=== PATIENT | female | born 1960 | race Caucasian/White ===

== ENCOUNTER 2016-05-05 20:50 | Emergency (ER) | payer OTHER ==
[~2016-05-05] VITALS: Ht 165.1 cm; Wt 52.9 kg
[~2016-05-05 20:50] MED LIST: BCTROWC NAE; CHLO4LIQ; FRS/40 PO
[2016-05-05 20:52] VITALS: TEMP 36.5; Ht 165.1 cm; Wt 52.9 kg
--- NOTE | 2016-05-05 21:31 | EMERGENCY ROOM VISIT NOTE ---
ED Visit Note First contact with patient: 20:57 The patient was seen and examined with Cherri Rogers PA-C. I agree with the history, physical and findings. Please see the note for disposition and details.
[2016-05-05] MEDS ORDERED: DOXY100T PO (21:37)
[2016-05-05] MEDS ORDERED: RIFA300C34 PO (21:37)
[2016-05-05 21:39] VITALS: BP 103/63; PULSE 70; O2SAT 96
[2016-05-05] MEDS ORDERED: CEPHALEXIN 500MG HOME PACK 1 EA BTL PO ONE (21:45)
[2016-05-05] MEDS ORDERED: SEPTRA DS HOME PACK 1 EA VIAL PO ONE (21:45)
[2016-05-05] MEDS ORDERED: SULF800T23 PO (21:51)
[2016-05-05] MEDS ORDERED: CEPH500C PO (21:51)
--- NOTE | 2016-05-05 21:53 | EMERGENCY ROOM VISIT NOTE ---
History First contact with patient: 20:57 Chief Complaint: SKIN PROBLEM Stated Complaint: POSSIBLE INFECTION ON RT SIDE OF FACE History of Present Illness The patient is a 56 year old female who presents to the Emergency Room with complaints of swelling to the right side of her face. The patient reports that she had a lesion removed from the right side of her face yesterday by Dr. Amezquita in [place]. The patient states that she has had the lesion for several years. She has been seen by the wound clinic and by infectious disease and states that at one time, a culture of the lesion grew out MRSA. She has been treated with multiple antibiotics. She states that the area has been very itchy and painful recently, so she chose to have it removed. She reports that when she woke up this morning, the area was itchy. Throughout the day, she has noticed swelling in the right side of the face surrounding the incision. She states it is both itchy and painful and rates her overall discomfort a 5/10. She is not currently taking any antibiotics or pain medication. She denies any fevers/chills. Review of Systems A complete 10-point Review of Systems was discussed with the patient, with pertinent positives and negatives listed in the History of Present Illness. All remaining Review of Systems questions can be considered negative unless otherwise specified. Past Medical/Surgical History Medical Problems: (1) Anemia (2) Anxiety State Nos (3) Chest pain (4) Depressive Disorder Nec (5) GI bleed (6) Hypotension Nos (7) Hypothyroidism Nos (8) Pericardial effusion (9) Renal insufficiency (10) Upper GI bleed Surgical Problems: (1) Hx of appendectomy (2) Hx of cholecystectomy Family History Heart disease Hypertension Social History Smoking Status: Never Smoker Drug Use: none Marital Status: Housing Status: lives with significant other Occupation Status: employed Current/Historical Medications Scheduled Cephalexin Monohydrate (Keflex), 500 MG PO QID Doxycycline Hyclate (Doxycycline Hyclate), 100 MG PO BID Levothyroxine Sodium (Levothyroxine Sodium), 50 MCG PO DAILY Mupirocin (Bactroban 2% Oint), 1 APPLN EXT BID Rifampin (Rifadin), 300 MG PO BID Sulfa/Trimethoprim (Bactrim Ds 800MG/160MG), 1 TAB PO BID Trazodone HCl (Trazodone HCl), 100 MG PO HS Venlafaxine Hcl (Effexor Extended Rel), 150 MG PO BID Scheduled PRN Furosemide (Furosemide), 20 MG PO DAILY PRN for Fluid Retention Allergies Coded Allergies: No Known Allergies (Unverified , 11/04/14) Physical Exam Vital Signs Date Time Temp Pulse Resp B/P Pulse Ox O2 Delivery O2 Flow Rate FiO2 05/05/16 21:39 70 16 103/63 96 Room Air 05/05/16 20:52 36.5 102 20 115/71 98 Room Air Physical Exam VITALS: Vitals are noted on the nurse's note and reviewed by myself. Vital signs stable. GENERAL: This is a 56-year-old female, in no acute distress, nondiaphoretic, well-developed well-nourished. SKIN: There is a surgical wound to the right temporal area with no drainage. There is moderate surrounding erythema without any fluctuance, erythema or warmth. HEENT: Normocephalic. PERRLA. EOMI. Nares patent. Mucous membranes moist. Neck is supple without nuchal rigidity. HEART: Regular rate and rhythm without murmurs gallops or rubs. LUNGS: Clear to auscultation bilaterally without wheezes, rales or rhonchi. NEURO: Patient was alert and oriented to person place and time. Medical Decision & Procedures Medications Administered Medications (Trade) Dose Ordered Sig/Lu Route Start Time Stop Time Status Last Admin Dose Admin Cephalexin Monohydrate (Keflex 500MG Home Pack) 1 homepack NOW ONCE PO 05/05/16 21:45 05/05/16 21:46 DC 05/05/16 21:40 1 HOMEPACK Trimethoprim/ Sulfamethoxazole (Sulfameth/ Trimeth Ds 800/ 160MG Home Pack) 1 homepack UD ONCE PO 05/05/16 21:45 05/05/16 21:46 DC 05/05/16 21:41 1 HOMEPACK Medical Decision Differential diagnosis includes abscess, cellulitis, allergic reaction, among others. The patient was evaluated as above. She does have a moderate amount of swelling. There is no erythema or warmth to suggest a cellulitis. However, given the patient's history of MRSA and the amount of swelling that she has, I do feel she should be covered on antibiotics for possible infection. The patient's previous visits to the wound clinic were reviewed. She has most recently been taking rifampin and doxycycline. She will be placed on Bactrim and Keflex. She was instructed to follow-up with her surgeon as soon as possible. She will return for worsening signs of infection. She was instructed to use Benadryl for the itching. She declined analgesics. The patient was independently evaluated by Dr. Aguilera, ED attending physician, who agreed with my assessment and treatment plan. The patient verbalized understanding of my assessment and treatment plan and was discharged home in good condition. Impression Primary Impression: Postoperative infection Departure Information Dispostion Home / Self-Care Condition GOOD Prescriptions Mupirocin (Bactroban 2% Oint) 66 Appln/22 Gm Oint 1 APPLN EXT BID, #1 TUBE Prov: Cherri Rogers PA-C 05/05/16 Cephalexin Monohydrate (Keflex) 500 Mg Cap 500 MG PO QID for 10 Days, #40 CAP Prov: Cherri Rogers PA-C 05/05/16 Sulfa/Trimethoprim (Bactrim Ds 800MG/160MG) Tab 1 TAB PO BID for 10 Days, #20 TAB Prov: Cherri Rogers PA-C 05/05/16 Referrals Nemo Person M.D. (PCP) Patient Instructions A Signature Page, [facility] Additional Instructions Take the Keflex and Bactrim as prescribed. Apply the Bactroban ointment to any open areas. You should call your surgeon on Sunday to schedule follow-up and let them know that you were seen in the emergency department today. You may take Benadryl [id number] for any itching. Return to the emergency department with any worsening swelling, fevers, worsening pain or any other new/concerning symptoms.
[2016-05-05] MEDS ORDERED: BCTROWC EXT (21:54)
[2016-06-08] MEDS ORDERED: CIPR1TAB11 PO (14:53)
[2016-10-01] MEDS ORDERED: EFFSR150 PO (00:18)
[2016-10-01] MEDS ORDERED: DSY100 PO (00:18)
[2016-10-01] MEDS ORDERED: LEVO50TA6 PO (00:18)
== END 2016-05-05 21:58 | disposition home or self-care (01) ==
LOC: C.EDB 20:52 → C.EDD 21:58
DX: R22.0 Localized swelling, mass and lump, head (principal); T81.4XXA Infection following a procedure, initial encounter; Y83.8 Other surgical procedures as the cause of abnormal reaction of the patient, or of later complication, without mention of misadventure at the time of the procedure; E03.9 Hypothyroidism, unspecified; F41.9 Anxiety disorder, unspecified; Z79.899 Other long term (current) drug therapy

== ENCOUNTER 2016-10-01 15:51 | Emergency (ER) | payer OTHER ==
[~2016-10-01] VITALS: Ht 165.1 cm; Wt 50.8 kg
[~2016-10-01 15:51] MED LIST changes: -BCTROWC NAE; -CHLO4LIQ; +DOXY100T PO; +DSY100 PO; +EFFSR150 PO; -FRS/40 PO; +LEVO50TA6 PO
[2016-10-01 15:55] VITALS: TEMP 36.7; Ht 165.1 cm; Wt 50.8 kg
[2016-10-01] MEDS ORDERED: DOXY100C2 PO (16:09)
--- NOTE | 2016-10-01 17:10 | EMERGENCY ROOM VISIT NOTE ---
ED Visit Note First contact with patient: 16:03 CHIEF COMPLAINT: knee pain HISTORY OF PRESENT ILLNESS: This 56-year-old female patient presents to the emergency department ambulatory after sustaining an injury to the left knee a few days ago when she was walking up a hill and cutting the grass. The patient denies any other injuries besides their knee. The patient admits to swelling but denies bruising. There is pain over the medial aspect and she also has pain into the calf. They rate the pain as sharp particularly with weightbearing and 7/10. The patient states they are able to walk on it. No numbness or tingling. No previous injuries to this knee. No ankle, foot or hip pain. The patient states she has the most discomfort when walking up and down the stairs REVIEW OF SYSTEMS: A 6 system review of systems was completed with positives and pertinent negatives listed in the HPI. ALLERGIES: No known allergies MEDICATIONS: See nursing notes PMH: Hypothyroidism SOCIAL HISTORY: The patient lives locally with family. She is employed PHYSICAL EXAM: Vital Signs: Reviewed Nurse's notes, vital signs stable. GENERAL : As a 56-year-old female, no acute distress, but appears in pain, well- developed, well-nourished. MENTAL STATUS: Alert, oriented to person place and time, and cooperative. MUSCULOSKELETAL: The left knee is mildly swollen. There is no ecchymosis. There is no joint effusion present. The patient is tender murmur the medial aspect. There is medial joint line tenderness. The patella does not subluxate. Range of motion is intact. Strength of the quads and hamstrings is 5/5. Catherine's is positive. Jermaine's and Anterior Drawer tests are negative for obvious laxity. There is no obvious laxity with varus and valgus stressing. There is tenderness over the left calf but no palpable cord. The foot and toes are warm and well-perfused. Dorsalis pedis pulse 2+. Sensation to pain and light touch is intact. Capillary refill less than 2 seconds. EMERGENCY DEPARTMENT COURSE: I examined the patient. X-rays of the left knee were reviewed by myself and read by radiology and reveal trace joint effusion but no obvious bony abnormality. Ultrasound the left lower extremity was obtained and reveals a popliteal cyst but no DVT. The patient's discomfort I suspect is most likely secondary to meniscal injury. It could also be due to the Beaulieu's cyst. The patient was placed in a knee immobilizer under my direction and the position was satisfactory. The patient was instructed on the use of crutches. She declined pain medication. She has seen Dr. Nava's office in the past and should contact them tomorrow to schedule a follow-up appointment. She should return to the ER with any worsening symptoms. The patient was discharged home in good condition. LEFT LOWER EXTREMITY VENOUS DOPPLER HISTORY: left leg pain, swelling COMPARISON STUDY: None. FINDINGS: There is normal compressibility, flow, and augmentation within the left lower extremity deep venous system. A 2.3 x 1.8 x 0.6 cm popliteal cyst. IMPRESSION: No DVT within the left lower extremity. LEFT KNEE 3 VIEWS HISTORY: left knee pain COMPARISON: None. FINDINGS: There is no fracture or dislocation. Trace knee effusion. No significant soft tissue swelling. No radiopaque foreign bodies. IMPRESSION: No fractures. Trace knee effusion. Medication Reconciliation: I attest that I have personally reviewed the patient' s current medication list. Blood pressure screening: The patient was found to have normal blood pressure on screening and does not require follow-up Problem List Medical Problems: (1) Anemia Status: Resolved (2) Anxiety State Nos Status: Chronic (3) Chest pain Status: Resolved (4) Depressive Disorder Nec Status: Chronic (5) GI bleed Status: Resolved (6) Hypotension Nos Status: Chronic (7) Hypothyroidism Nos Status: Chronic (8) Pericardial effusion Status: Resolved (9) Renal insufficiency Status: Resolved (10) Upper GI bleed Status: Resolved Surgical Problems: (1) Hx of appendectomy Status: Resolved (2) Hx of cholecystectomy Status: Resolved Current/Historical Medications Scheduled Doxycycline Hyclate (Vibramycin), 100 MG PO BID Levothyroxine Sodium (Levothyroxine Sodium), 50 MCG PO DAILY Trazodone HCl (Trazodone HCl), 100 MG PO HS Venlafaxine Hcl (Effexor Extended Rel), 150 MG PO BID Scheduled PRN Furosemide (Furosemide), 20 MG PO DAILY PRN for Fluid Retention Allergies Coded Allergies: No Known Allergies (Unverified , 11/04/14) Vital Signs Date Time Temp Pulse Resp B/P (MAP) Pulse Ox O2 Delivery O2 Flow Rate FiO2 10/01/16 17:55 53 20 143/62 97 10/01/16 15:55 36.7 90 18 129/78 97 Room Air Departure Information Impression Primary Impression: Knee effusion, left Dispostion Home / Self-Care Condition GOOD Referrals Nemo Person M.D. (PCP) Petesron Wall D.O. Patient Instructions [facility] Additional Instructions Ice and elevate knee for swelling and pain. Wear knee immobilizer when up and about. Use crutches - minimal weight on foot. Ibuprofen 600 mg every 6 hrs for pain. Contact orthopedics tomorrow to schedule a follow up appointment. Return with worsening symptoms.
--- NOTE | 2016-10-01 17:23 | DIAGNOSTIC IMAGING REPORT ---
LEFT KNEE 3 VIEWS HISTORY: left knee pain COMPARISON: None. FINDINGS: There is no fracture or dislocation. Trace knee effusion. No significant soft tissue swelling. No radiopaque foreign bodies. IMPRESSION: No fractures. Trace knee effusion. Electronically signed by: Bryant Daly M.D. 10/01/2016 5:22 PM Dictated Date/Time: 10/01/2016 5:21 PM
--- NOTE | 2016-10-01 17:31 | DIAGNOSTIC IMAGING REPORT ---
LEFT LOWER EXTREMITY VENOUS DOPPLER HISTORY: left leg pain, swelling COMPARISON STUDY: None. FINDINGS: There is normal compressibility, flow, and augmentation within the left lower extremity deep venous system. A 2.3 x 1.8 x 0.6 cm popliteal cyst. IMPRESSION: No DVT within the left lower extremity. Electronically signed by: Bryant Daly M.D. 10/01/2016 5:30 PM Dictated Date/Time: 10/01/2016 5:30 PM
[2016-10-01 17:55] VITALS: BP 143/62; PULSE 53; O2SAT 97
[2016-10-01] MEDS ORDERED: LSX20 PO (21:37)
== END 2016-10-01 17:47 | disposition home or self-care (01) ==
LOC: C.EDB 15:53 → C.EDD 17:47
DX: M25.462 Effusion, left knee (principal); X58.XXXA Exposure to other specified factors, initial encounter; Y92.096 Garden or yard of other non-institutional residence as the place of occurrence of the external cause; E03.9 Hypothyroidism, unspecified; F41.9 Anxiety disorder, unspecified; F32.9 Major depressive disorder, single episode, unspecified; Z79.899 Other long term (current) drug therapy

== ENCOUNTER → 2016-12-07 | Outpatient (CLI) | payer OTHER ==
[~2016-12-07] MED LIST changes: +DOXY100C2 PO; -DOXY100T PO; +LSX20 PO
[2016-12-07 14:27] LABS: CHOLESTEROL/HDL RATIO 1.8; THYROID STIMULATING HORMONE 2.32 uIu/ml (0.300-4.500)
== END | disposition home or self-care (01) ==
LOC: C.LABMFLN 07:17
PROVIDERS: ATTEND Family Medicine
DX: E03.9 Hypothyroidism, unspecified (principal); Z13.220 Encounter for screening for lipoid disorders; Z13.1 Encounter for screening for diabetes mellitus

== ENCOUNTER → 2017-01-08 | Outpatient (CLI) | payer OTHER | END | disposition home or self-care (01) | LOC: C.LABSPEC 17:30 | PROVIDERS: ATTEND Plastic Surgery | DX: H01.8 Other specified inflammations of eyelid (principal) ==

== ENCOUNTER → 2017-01-08 | Outpatient (CLI) | payer OTHER | END | disposition home or self-care (01) | LOC: C.PATHSPEC 17:32 | PROVIDERS: ATTEND Plastic Surgery | DX: H01.8 Other specified inflammations of eyelid (principal) ==

== ENCOUNTER → 2017-02-05 | Outpatient (CLI) | payer OTHER ==
--- NOTE | 2017-02-05 14:15 | MAMMOGRAPHY REPORT ---
BILATERAL DIGITAL SCREENING MAMMOGRAM TOMOSYNTHESIS WITH CAD: 02/05/2017 CLINICAL HISTORY: Routine screening. Patient has no complaints. TECHNIQUE: Breast tomosynthesis in addition to standard 2D mammography was performed. Current study was also evaluated with a Computer Aided Detection (CAD) system. COMPARISON: Comparison is made to exams dated: 02/03/2016 mammogram - [facility], mammogram, and 08/18/2013 mammogram - [facility]. BREAST COMPOSITION: There are scattered areas of fibroglandular density in both breasts. FINDINGS: There is stable focal asymmetry in the upper outer middle to posterior left breast, and a b enign rim calcification in the anterior right breast. No suspicious mass, architectural distortion o r cluster of microcalcifications is seen. IMPRESSION: ACR BI-RADS CATEGORY 1: NEGATIVE There is no mammographic evidence of malignancy. A 1 year screening mammogram is recommended. The pa tient will receive written notification of the results. Approximately 10% of breast cancers are not detected with mammography. A negative mammographic report should not delay biopsy if a clinically suggestive mass is present. Miriam Paul M.D. ay/:02/05/2017 08:16:41 Dragger Out: Mariana GAMING(Ashwin)(Lupe), [facility] letter sent: Normal 1/2 BI-RADS Code: ACR BI-RADS Category 1: Negative
== END | disposition home or self-care (01) ==
LOC: C.MAMM 07:19
PROVIDERS: ATTEND Family Medicine
DX: Z12.31 Encounter for screening mammogram for malignant neoplasm of breast (principal)

== ENCOUNTER → 2017-02-22 | Outpatient (CLI) | payer OTHER | END | disposition home or self-care (01) | LOC: C.PATHSPEC 10:55 | PROVIDERS: ATTEND Plastic Surgery | DX: L28.0 Lichen simplex chronicus (principal) ==

== ENCOUNTER → 2017-08-17 | Outpatient (CLI) | payer OTHER | END | disposition home or self-care (01) | LOC: C.PAPS 11:51 | PROVIDERS: ATTEND Obstetrics & Gynecology | DX: Z12.4 Encounter for screening for malignant neoplasm of cervix (principal) ==